=== PATIENT | female | born 1945 | race Caucasian/White ===

== ENCOUNTER → 2017-04-17 | Outpatient (CLI) | payer MEDICARE ==
[~2017-04-17] MED LIST: AMLODIPINE BESY10 MG PO; ASPIR 8181 MG PO; CITRACAL; DILTIAZEM ER240 M1 PO; GLUCOSAMINE; HYDROCODON-ACE1 EAC9; KRILL OIL; LORTAB 10-5001 EACH PO; NORCO 5-325 TA1 EACH PO; PROBIOTIC & AC1 EACH PO; TRAZODONE HCL150 MG PO; VIT D2 PO; XARELTO10 MG PO
--- NOTE | 2017-04-17 10:36 | Diagnostic Imaging Report ---
PROCEDURE: Frontal and lateral views of the chest. COMPARISON: Chest 2 views 02/02/2017. INDICATIONS: KIDNEY CANCER FINDINGS: Lines/tubes: None. Lungs: The lungs are well inflated and clear. There is no evidence of pneumonia or pulmonary edema. Pleura: There is no pleural effusion or pneumothorax. Stable scarring in the right lung base. Heart and mediastinum: The heart and the mediastinum are normal. Bones: No acute bony abnormality. Degenerative changes of the thoracic spine. Partially visualized anterior cervical spine fusion hardware. IMPRESSION: No acute radiographic abnormality. Dictated by: Kenneth Brooks M.D. on 04/17/2017 at 10:35 Electronically approved by: Kenneth Brooks M.D. on 04/17/2017 at 10:35
--- NOTE | 2017-04-17 11:31 | Diagnostic Imaging Report ---
PROCEDURE:US RETROPERITONEAL ( KIDNEY ). COMPARISON:None. 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 FINDINGS: RIGHT KIDNEY: Absent. No echogenic soft tissue in the right renal bed. LEFT KIDNEY: 10.9 cm, cortex 1.4 cm Cysts: None Solid masses: None Stones: None Hydronephrosis: None Echogenicity: Normal Bladder: No focal lesions or wall thickening. Left ureteral jet is identified. CONCLUSION: 1. Status post right nephrectomy without sonographic evidence of residual or recurrent disease. 2. Unremarkable left kidney. Arturo Owens M.D. Dictated by: Arturo Owens M.D. on 04/17/2017 at 11:30 Electronically approved by: Arturo Owens M.D. on 04/17/2017 at 11:30
== END ==
LOC: US 09:34
PROVIDERS: ATTEND Urology
DX: D44.10 Neoplasm of uncertain behavior of unspecified adrenal gland (principal); D64.9 Anemia, unspecified; N28.1 Cyst of kidney, acquired
CPT/HCPCS: 71046; 76770

== ENCOUNTER → 2017-10-10 | Outpatient (CLI) | payer MEDICARE ==
--- NOTE | 2017-10-10 11:24 | Diagnostic Imaging Report ---
PROCEDURE: Frontal and lateral views of the chest. COMPARISON: Chest radiograph 04/17/2017. INDICATIONS: CYST OF KIDNEY. NEOPLASM OF UNSPECIFIED BEHAVIOR. FINDINGS: Lines/tubes: None. Lungs: The lungs are well inflated. There is no evidence of pneumonia or pulmonary edema. Pleura: There is no pleural effusion or pneumothorax. Stable scarring in the right lung base with mild elevation of the right hemidiaphragm. Heart and mediastinum: The cardiomediastinal silhouette is unchanged. Bones: No acute bony abnormality. Partially visualized cervical fixation hardware. Surgical clips are partially visualized in the upper abdomen. IMPRESSION: No acute cardiopulmonary disease. Dictated by: MOHAMUD LOWERY M.D. on 10/10/2017 at 11:25 Electronically approved by: MOHAMUD LOWERY M.D. on 10/10/2017 at 11:25
--- NOTE | 2017-10-10 11:24 | Diagnostic Imaging Report ---
PROCEDURE:US RETROPERITONEAL ( KIDNEY ). COMPARISON:None. INDICATIONS:Cyst of Kidney, Unspecified behavior of neoplasm TECHNIQUE: Galo-scale and color sonographic images of the bilateral kidneys and bladder where obtained in transverse and longitudinal planes. FINDINGS: RIGHT KIDNEY: Status post total right nephrectomy. LEFT KIDNEY: 10 cm, cortex 1.3 cm Cysts: None Solid masses: None Stones: None Hydronephrosis: None Echogenicity: Normal Bladder: Unremarkable; bilateral ureteral jets are visualized. CONCLUSION: Status post right total nephrectomy. Unremarkable left renal ultrasound. Dictated by: MOHAMUD LOWERY M.D. on 10/10/2017 at 11:27 Electronically approved by: MOHAMUD LOWERY M.D. on 10/10/2017 at 11:27
== END ==
LOC: US 09:46
PROVIDERS: ATTEND Urology
DX: D44.10 Neoplasm of uncertain behavior of unspecified adrenal gland (principal); N28.1 Cyst of kidney, acquired
CPT/HCPCS: 71046; 76770

== ENCOUNTER 2021-03-22 12:14 | Emergency (ER) | payer MEDICARE ==
[~2021-03-22] VITALS: Ht 167.6 cm; Wt 93.4 kg
[2021-03-22] MEDS ORDERED: LIDOCAINE1 EAC1 EXT (12:23)
== END 2021-03-22 12:53 | disposition home or self-care (01) ==
LOC: ER 12:19
DX: M54.9 Dorsalgia, unspecified (principal); G89.29 Other chronic pain
CPT/HCPCS: 99282